=== PATIENT | male | born 1990 | race Caucasian/White ===

== ENCOUNTER 2017-10-03 12:03 | Emergency (ER) | payer OTHER ==
--- NOTE | 2017-10-03 13:05 | EDM.PDOC ---
ED HPI GENERAL MEDICAL PROBLEM - General Chief Complaint: Skin Complaint Stated Complaint: RASH Time Seen by Provider: 10/03/17 12:38 Source of Information: Reports: Patient History Limitations: Reports: No Limitations - History of Present Illness INITIAL COMMENTS - FREE TEXT/NARRATIVE: 27-year-old male presents for evaluation and treatment of her rash to the groin. Patient reports the rash has been present for over a month. He has tried multiple [id number] medications but they only seem to worsen his symptoms. He reports that the rash is very pruritic. He reports it is involved in his groin into his belt area. No involvement to the penis. No fevers, chills , nausea or vomiting. Patient states he's never had anything this significant before. He also reports pain and itchiness to his bilateral feet. States at times the feet burn. Patient is sexually active. - Related Data Allergies Allergy/AdvReac Type Severity Reaction Status Date / Time No Known Allergies Allergy Verified 10/03/17 12:30 Home Meds: Home Meds Fluconazole [IJD: Fluconazole] 150 mg PO WEEKLY #4 tab 10/03/17 [Rx] Past Medical History - Past Health History Medical/Surgical History: Denies Medical/Surgical History Social & Family History - Tobacco Use Smoking Status *Q: Unknown Ever Smoked ED ROS GENERAL - Review of Systems Review Of Systems: See Below Constitutional: Denies: Fever, Chills GI/Abdominal: Denies: Nausea, Vomiting Skin: Reports: Pruritis, Rash (groin and belt area; feet) ED EXAM, SKIN/RASH Exam: See Below Exam Limited By: No Limitations General Appearance: Alert, WD/WN, No Apparent Distress Ears: Normal External Exam Nose: Normal Inspection Throat/Mouth: Normal Inspection, Normal Lips, Normal Voice, No Airway Compromise Respiratory/Chest: No Respiratory Distress, Lungs Clear, Normal Breath Sounds Cardiovascular: Normal Peripheral Pulses, Regular Rate, Rhythm, No Murmur Neurological: Alert, Oriented Psychiatric: Normal Affect, Normal Mood Skin: Warm, Dry, Other (erythematous, dry rash to the bilteral feet and groin; dry borders ) Location, Skin: Lower Extremity, Right, Lower Extremity, Left, Groin Characteristics: Macular Associated features: Scaling. No: Tenderness Course - Vital Signs Last Recorded V/S: Last Vital Signs Temp 36.9 C 10/03/17 12:31 Pulse 98 10/03/17 12:31 Resp 18 10/03/17 12:31 BP 169/88 H 10/03/17 12:31 Pulse Ox 98 10/03/17 12:31 Departure - Departure Time of Disposition: 12:58 Disposition: Home, Self-Care 01 Condition: Good Clinical Impression: Tinea pedis, Tinea cruris - Discharge Information Prescriptions: Fluconazole [IJD: Fluconazole] 150 mg PO WEEKLY #4 tab Referrals: PCP,None [Primary Care Provider] - Stu Vazquez PA-C [Phys[facility]] - Forms: ED Department Discharge Additional Instructions: Fluconazole 1 tab PO weekly x 4 weeks. Recommend changing socks frequently to help keep feet dry. Follow-up with family [facility] if symptoms do not improve in 3-4 weeks Recommend Stu Vazquez or Dr. Puri at the [facility]. Call [phone] to schedule with him. Please return to the ER should your symptoms change or worsen.
== END 2017-10-03 13:25 | disposition home or self-care (01) ==
LOC: JD.ED 12:03
DX: B35.3 Tinea pedis (principal); B35.6 Tinea cruris
CPT/HCPCS: 99283